=== PATIENT | female | born 1995 | race African-American/Black ===

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

== ENCOUNTER 2017-01-15 19:20 | Emergency (ER) | payer SELFPAY ==
[~2017-01-15] VITALS: Ht 172.7 cm; Wt 122.0 kg
[2017-01-15 19:22] VITALS: BP 125/71; PULSE 106; RESP 16; TEMP 101.4; O2SAT 99
[2017-01-15] MEDS ORDERED: birth control PO (20:46)
[2017-01-15 20:50] VITALS: BP 143/69; PULSE 108; RESP 18; TEMP 99.4; O2SAT 99
--- NOTE | 2017-01-15 21:00 | PD ---
HPI Chief Complaint: Cold / Flu Symptoms Time Seen by Provider: 20:34 Travel History International Travel<30 days: No Contact w/Intl Traveler<30days: No Traveled to known affect area: No History of Present Illness HPI Tonight year-old woman who presents emergent [place] of nausea vomiting that started this morning. She went to take a nap when she woke up she had more nausea and vomiting. She one episode of some blood in her emesis. She had some epigastric abdominal pain since she's been vomiting as well. No vaginal discharge. No vaginal bleeding. She has had some lower abdominal discomfort when she urinates but denies any dark urine or dysuria. No other complaints. History Past Medical History Medical History: Denies Significant Hx Tetanus Vaccination: < 5 Years LMP: 12/02/2016 : 0 Past Surgical History Surgical History: No Previous Surgery Social History Alcohol Use: No Tobacco Use: No Allergies-Medications (Allergen,Severity, Reaction): Coded Allergies: No Known Allergies (Verified , 08/23/16) Reported Meds & Prescriptions Reported Meds & Active Scripts Active Reported [ control] 1 Tab PO DAILY Review of Systems Except as stated in HPI: all other systems reviewed are Neg Physical Exam Narrative GENERAL: Well-appearing 21-year-old young woman, no acute distress. SKIN: Focused skin assessment warm/dry. HEAD: Atraumatic. Normocephalic. CARDIOVASCULAR: Regular rate and rhythm. No murmur appreciated. RESPIRATORY: No accessory muscle use. Clear to auscultation. Breath sounds equal bilaterally. GASTROINTESTINAL: Abdomen soft, minimal epigastric tenderness palpation. No lower abdominal tenderness. No rebound or guarding. MUSCULOSKELETAL: No obvious deformities. No edema. NEUROLOGICAL: Awake and alert. No obvious cranial nerve deficits. Motor grossly within normal limits. Normal speech. PSYCHIATRIC: Appropriate mood and affect; insight and judgment normal. Data Data Last Documented VS Vital Signs Date Time Temp Pulse Resp B/P Pulse Ox O2 Delivery O2 Flow Rate FiO2 01/15/17 20:50 99.4 108 18 143/69 99 Room Air Orders Urinalysis - C+S If Indicated (01/15/17 20:51) Ed Urine Pregnancytest Poc (01/15/17 20:51) Urine Culture (01/15/17 20:50) Lidocaine 1% Inj (50 Ml) (Xylocaine 1% I (01/15/17 22:15) Ceftriaxone Inj (Rocephin Inj) (01/15/17 22:15) Labs Laboratory Tests Test 01/15/17 20:50 Urine Color YELLOW Urine Turbidity HAZY Urine pH 6.0 Urine Specific [place] 1.034 Urine Protein 30 mg/dL Urine Glucose (UA) NEG mg/dL Urine Ketones TRACE mg/dL Urine Occult Blood TRACE Urine Nitrite NEG Urine Bilirubin NEG Urine Urobilinogen 2.0 MG/DL Urine Leukocyte Esterase MOD Urine RBC 11 /hpf Urine WBC 41 /hpf Urine Squamous Epithelial 8 /hpf Cells Urine Mucus MANY /lpf Microscopic Urinalysis Comment CULTURE INDICATED MDM Medical Decision Making Medical Screen Exam Complete: Yes Emergency Medical Condition: Yes Interpretation(s) UA: Pyuria with a little bit hematuria. Differential Diagnosis UTI, URI, strep, other Narrative Course Medical decision making INITIAL cause a 21-year-old young woman who presents emergency Department with nausea vomiting and some suprapubic abdominal discomfort. She looks well. I think is probably UTI. If the UA is not definitive, we'll check some basic labs. Hepatobiliary disease or pancreatitis seems less likely. Diagnosis Primary Impression: Pyelonephritis Additional Instructions: Take antibiotics as prescribed. Over the primary doctor in the next 2-4 days. Return to the emergency department for any worsening abdominal pain, fevers, or any other new or worsening symptoms. Med/Other Pt SpecificInfo: Prescription(s) given Scripts Ondansetron Odt 4 Mg Tab4 Mg SL Q8HR PRN (Nausea/Vomiting) #12 TAB Prov:Nik Hummel MD 01/15/17 Cephalexin (Keflex)500 Mg [id number] Mg PO TID 10 Days Ref 0 Prov:Nik Hummel MD 01/15/17 Disposition: 01 DISCHARGE HOME Condition: Stable Nik Hummel MD Jan 15, 2017 21:00
[2017-01-15 22:02] LABS: BLOOD, URINE TRACE (NEG); COMMENT (UR) CULTURE INDICATED; CULTURE IF INDICATED CULTURE INDICATED; GLUCOSE,URINE NEG (NEG); KETONE, URINE TRACE mg/dL (NEG); MUCUS URINE MANY /lpf (OCC); NITRITE,URINE NEG (NEG); SQUAMOUS EPITHELIAL CELL URINE 8 /hpf (0-5); URINE COLOR YELLOW (YELLW/STRAW)
[2017-01-15] MEDS ORDERED: LIDOCAINE HCL 1% 50 ML VIAL IM ONE (22:15)
[2017-01-15] MEDS ORDERED: CEPH-460 PO (22:16)
[2017-01-15] MEDS ORDERED: ONDA4TAB7 SL (22:16)
[2017-01-15 22:49] VITALS: PULSE 98; RESP 18; O2SAT 99
== END 2017-01-15 22:50 | disposition home or self-care (01) ==
LOC: NEPD 19:20
DX: N12 Tubulo-interstitial nephritis, not specified as acute or chronic (principal); B96.20 Unspecified Escherichia coli [E. coli] as the cause of diseases classified elsewhere
CPT/HCPCS: 81001; 84703; 87077; 87086; 87186; 96372; 99284; J0696

== ENCOUNTER 2017-02-19 23:24 | Emergency (ER) | payer SELFPAY ==
[~2017-02-19] VITALS: Ht 177.8 cm; Wt 110.0 kg
[~2017-02-19 23:24] MED LIST changes: +CEPH-460 PO; +ONDA4TAB7 SL; -PRED-503 PO; +birth control PO
[2017-02-19 23:25] VITALS: BP 131/91; PULSE 90; RESP 16; TEMP 99.7; O2SAT 100
[2017-02-20] MEDS ORDERED: methylPREDNISolone SOD SUCC 125 MG/2 ML VIAL IM ONE
[2017-02-20] MEDS ORDERED: IBUPROFEN SUSP 100 MG/5 ML UDC PO ONE
--- NOTE | 2017-02-20 00:03 | PD ---
HPI Chief Complaint: ENT Complaint Time Seen by Provider: 23:58 Travel History International Travel<30 days: No Contact w/Intl Traveler<30days: No Traveled to known affect area: No History of Present Illness HPI 21-year-old female with history of no sniff can past medical issues, presents to the ER today with sore throat since yesterday, fevers, nausea, malaise. She states that she is having trouble swallowing her control pills and other things. She denies any abdominal pains, diarrhea, or any other symptoms. She does not know any sick contacts. Modifying Factors: None Associated Signs & Symptoms: Sore throat, fevers Risk Factors: None PFSH Past Medical History Medical History: Denies Significant Hx Diminished Hearing: No Immunizations Current: Yes Tetanus Vaccination: < 5 Years Influenza Vaccination: No ?: Not LMP: 02/01/17 : 0 Past Surgical History Surgical History: No Previous Surgery Social History Alcohol Use: No Tobacco Use: No Substance Use: No Allergies-Medications (Allergen,Severity, Reaction): Coded Allergies: No Known Allergies (Verified , 02/19/17) Reported Meds & Prescriptions Reported Meds & Active Scripts Active Reported [ control] 1 Tab PO DAILY Review of Systems Except as stated in HPI: all other systems reviewed are Neg Physical Exam Narrative GENERAL: Well-developed obese young -[place] female patient currently in mild distress. Awake and oriented 3. SKIN: Focused skin assessment warm/dry. HEAD: Atraumatic. Normocephalic. EYES: Pupils equal and round. No scleral icterus. No injection or drainage. ENT: No nasal bleeding or discharge. Mucous membranes pink and moist. Pharynx is fairly erythematous with enlarged tonsils. No asymmetry. Airway intact. NECK: Trachea midline. No JVD. CARDIOVASCULAR: Regular rate and rhythm. No murmur appreciated. RESPIRATORY: No accessory muscle use. Clear to auscultation. Breath sounds equal bilaterally. GASTROINTESTINAL: Abdomen soft, non-tender, nondistended. Hepatic and splenic margins not palpable. MUSCULOSKELETAL: No obvious deformities. No clubbing. No cyanosis. No edema. NEUROLOGICAL: Awake and alert. No obvious cranial nerve deficits. Motor grossly within normal limits. Normal speech. PSYCHIATRIC: Appropriate mood and affect; insight and judgment normal. Data Data Last Documented VS Vital Signs Date Time Temp Pulse Resp B/P (MAP) Pulse Ox O2 Delivery O2 Flow Rate FiO2 02/19/17 23:25 99.7 90 16 131/91 (104) 100 Room Air Orders Orders Group A Rapid Strep Screen (02/19/17 23:58) Ibuprofen Liq (Motrin Liq) (02/20/17 00:00) Methylprednisolone So Succ Inj (Solumedr (02/20/17 00:00) MDM Medical Decision Making Medical Screen Exam Complete: Yes Emergency Medical Condition: Yes Medical Record Reviewed: Yes Differential Diagnosis Tonsillitis versus pharyngitis versus peritonsillar abscess Narrative Course Patient was given Motrin and Solu-Medrol in the ER. Rapid strep was positive. Airway is patent. On reevaluation at 12:30 AM, she is feeling better. Able to take by mouth's. At this point, my plan would be to release her with follow-up to primary care physician. The plan was discussed with the patient and she states understanding. Diagnosis Primary Impression: Strep pharyngitis Med/Other Pt SpecificInfo: Prescription(s) given Scripts Benzocaine-Menthol Lozenge (Cepacol Sore Throat Lozenge) 15-3.6 Mg Lozg 1 LOZENGE PO Q2H Y for SORE THROAT, #1 CONTAINER 0 Refills Prov: Aneesh Roberts MD 02/20/17 Penicillin V Potassium (Penicillin V Potassium) 500 Mg Tab 500 MG PO Q6H for Infection for 7 Days, TAB 0 Refills Prov: Aneesh Roberts MD 02/20/17 Ibuprofen (Motrin Ib) 200 Mg Tablet 600 MG PO QID Y for PAIN SCALE 1 TO 10, #30 Prov: Aneesh Roberts MD 02/20/17 Disposition: 01 DISCHARGE HOME Condition: Stable Aneesh Roberts MD Feb 20, 2017 00:03
[2017-02-20] MEDS ORDERED: PENI500T PO (00:42)
[2017-02-20] MEDS ORDERED: BENZ1LOZ5 PO (00:42)
[2017-02-20] MEDS ORDERED: IBUP-1129 PO (00:42)
== END 2017-02-20 01:03 | disposition home or self-care (01) ==
LOC: NEPC 23:24
DX: J02.0 Streptococcal pharyngitis (principal); R11.0 Nausea; R53.81 Other malaise
CPT/HCPCS: 87880; 96372; 99284; J2930

== ENCOUNTER 2017-08-17 19:21 | Emergency (ER) | payer OTHER ==
[~2017-08-17 19:21] MED LIST changes: +BENZ1LOZ5 PO; -CEPH-460 PO; +IBUP-1129 PO; -ONDA4TAB7 SL; +PENI500T PO
[2017-08-17 19:24] VITALS: BP 135/63; PULSE 70; RESP 16; TEMP 98.6; O2SAT 100
[2017-08-17] MEDS ORDERED: IBUPROFEN 800 MG TAB PO ONE (21:00)
[2017-08-17] MEDS ORDERED: CYCLOBENZAPRINE HCL 10 MG TAB PO ONE (21:00)
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
[2017-08-17] MEDS ORDERED: IBUP1TAB7 PO (21:44)
[2017-08-17] MEDS ORDERED: CYCL10TA PO (21:44)
[2017-08-17 22:01] VITALS: RESP 20
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
== END 2017-08-17 22:59 | disposition home or self-care (01) ==
LOC: NEPK 19:21
DX: T14.8XXA Other injury of unspecified body region, initial encounter (principal); V89.2XXA Person injured in unspecified motor-vehicle accident, traffic, initial encounter
CPT/HCPCS: 71046; 84703; 99283